=== PATIENT | female | born 1935 | race American Indian/Alaskan Native ===

== ENCOUNTER 2017-09-11 13:56 | Emergency (ER) | payer MEDICARE, OTHER ==
[~2017-09-11] VITALS: Ht 165.1 cm; Wt 72.1 kg
[2017-09-11] MEDS ORDERED: LISI-552 PO (14:28)
[2017-09-11] MEDS ORDERED: CITA20TA7 PO (14:29)
[2017-09-11] MEDS ORDERED: ASPI-586 PO (14:30)
[2017-09-11 14:58] LABS: BASOPHILS % (AUTO) 0 % (0-10); EOSINOPHILS % (AUTO) 0 % (0-10); LYMPHOCYTES # (AUTO) 0.9 X 10^3 (1.0-4.0); LYMPHOCYTES % (AUTO) 20 % (12-44); MEAN CORPUSCULAR HEMOGLOBIN 31 PG (25-34); MEAN CORPUSCULAR HGB CONC 35 G/DL (32-36); MEAN CORPUSCULAR VOLUME 88 FL (80-99); MEAN PLATELET VOLUME 9.5 FL (7.4-10.4); MONOCYTES # (AUTO) 0.7 X 10^3 (0.0-1.0); MONOCYTES % (AUTO) 15 % (0-12); NEUTROPHILS % (AUTO) 65 % (42-75); PLATELET COUNT 191 10^3/uL (130-400); RED BLOOD COUNT 4.56 10^6/uL (4.35-5.85); RED CELL DISTRIBUTION WIDTH 12.2 % (10.0-14.5); WHITE BLOOD COUNT 4.6 10^3/uL (4.3-11.0)
[2017-09-11 15:18] LABS: ALANINE AMINOTRANSFERASE 44 U/L (0-55); ALBUMIN 3.9 GM/DL (3.2-4.5); ANION GAP 11 MMOL/L (5-14); ASPARTATE AMINO TRANSFERASE 41 U/L (5-34); BILIRUBIN,TOTAL 0.4 MG/DL (0.1-1.0); BLOOD UREA NITROGEN 14 MG/DL (7-18); BUN/CREATININE RATIO 19; CALCIUM 8.6 MG/DL (8.5-10.1); CARBON DIOXIDE 22 MMOL/L (21-32); CHLORIDE 102 MMOL/L (98-107); CREATININE SERUM 0.75 MG/DL (0.60-1.30); GFR ESTIMATED > 60; GLUCOSE 92 MG/DL (70-105); POTASSIUM 3.7 MMOL/L (3.6-5.0); SODIUM 135 MMOL/L (135-145); TOTAL PROTEIN 6.6 GM/DL (6.4-8.2)
--- NOTE | 2017-09-11 16:04 | ED Cough/URI ---
General Chief Complaint: Cough/Cold/Flu Symptoms Stated Complaint: DIAHREA,WEAK Nursing Triage Note: AMB TO ROOM C/O COUGH AND WEAK. DRINKING WITHOUT PROBLEM REPORTS WAS SEEN BY PCP ON THURSDAY AND THU. WAS PUT ON ANTIBIOTIC ON THU Source: patient Exam Limitations: no limitations History of Present Illness Time seen by provider: 15:56 Initial Comments The patient is a 81-year-old white female who reports that she has had a cough fever and flulike symptoms for about one week. She is becoming discouraged by general weakness. She saw her provider Thursday and Thursday of this week. She was given an antibiotic on Thursday. Following that she states that she had some stool incontinence. The stool was soft not watery. Timing/Duration: week Severity/Quality: moderate, dry cough Associated Symptoms: cough, dizziness, fever/chills, lightheadedness, muscle aches Allergies and Home Medications Allergies Coded Allergies: No Known Drug Allergies (Unverified , 09/11/17) Home Medications Aspirin 81 Mg Tablet.dr, 81 MG PO, (Reported) Citalopram Hydrobromide 20 Mg Tablet, 20 MG PO, (Reported) Lisinopril 20 Mg Tablet, 20 MG PO DAILY, (Reported) Constitutional: see HPI EENTM: no symptoms reported Respiratory: cough Cardiovascular: no symptoms reported Gastrointestinal: diarrhea Genitourinary: no symptoms reported Musculoskeletal: muscle pain Skin: no symptoms reported Psychiatric/Neurological: No Symptoms Reported Hematologic/Lymphatic: No Symptoms Reported Immunological/Allergic: no symptoms reported Past Xvfdutg-Jspnng-Opxclx Hx Patient Social History Alcohol Use: Denies Use Recreational Drug Use: No Smoking Status: Never a Smoker Recent Foreign Travel: No Contact w/Someone Who Travel: No Recent Infectious Disease Expo: No Surgeries History of Surgeries: Yes Surgeries: Hysterectomy, Orthopedic Respiratory History of Respiratory Disorde: No Cardiovascular History of Cardiac Disorders: Yes Cardiac Disorders: Hypertension Neurological History of Neurological Disord: No Genitourinary History of Genitourinary Disor: No Gastrointestinal History of Gastrointestinal Di: No Musculoskeletal History of Musculoskeletal Dis: No Endocrine History of Endocrine Disorders: No HEENT History of HEENT Disorders: No Cancer History of Cancer: No Psychosocial History of Psychiatric Problem: No Integumentary History of Skin or Integumenta: No Physical Exam Vital Signs Vital Sign - Last 12Hours 09/11/17 14:15 Temp 97.6 Pulse 56 B/P (MAP) 128/71 (90) Pulse Ox 98 O2 Delivery Room Air Capillary Refill : Less Than 3 Seconds General Appearance: mild distress Eyes: Bilateral Eye Normal Inspection HEENT: other (try tongue with white exudate) Neck: full range of motion Respiratory: chest non-tender, lungs clear, normal breath sounds, no respiratory distress, no accessory muscle use, respiratory distress Cardiovascular: normal peripheral pulses, regular rate, rhythm, no edema, no gallop, no JVD, no murmur Gastrointestinal: normal bowel sounds, non tender, soft, no organomegaly, no pulsatile mass Extremities: normal range of motion, non-tender, normal inspection, no pedal edema, no calf tenderness, normal capillary refill, pelvis stable 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, no motor/sensory deficits, alert, normal mood/affect, oriented x 3 Skin: normal color, warm/dry, cyanosis, cool, diaphoresis, damp Lymphatic: no adenopathy Progress/Results/Core Measures Suspected Sepsis Recent Fever Within 48 Hours: No Infection Criteria Present: None New/Unexplained Altered Menta: No Sepsis Screen: No Definite Risk Sepsis Diagnosis: SIRS Temperature:97.6 Pulse: 56 Respiratory Rate: Laboratory Tests 09/11/17 14:55: White Blood Count 4.6 Blood Pressure 128 /71 Mean: 90 Laboratory Tests 09/11/17 14:55: Creatinine 0.75, Platelet Count 191, Total Bilirubin 0.4 Results/Orders Lab Results Laboratory Tests Test 09/11/17 14:55 Range/Units White Blood Count 4.6 4.3-11.0 10^3/uL Red Blood Count 4.56 4.35-5.85 10^6/uL Hemoglobin 14.1 11.5-16.0 G/DL Hematocrit 40 35-52 % Mean Corpuscular Volume 88 80-99 FL Mean Corpuscular Hemoglobin 31 25-34 PG Mean Corpuscular Hemoglobin Concent 35 32-36 G/DL Red Cell Distribution Width 12.2 10.0-14.5 % Platelet Count 191 130-400 10^3/uL Mean Platelet Volume 9.5 7.4-10.4 FL Neutrophils (%) (Auto) 65 42-75 % Lymphocytes (%) (Auto) 20 12-44 % Monocytes (%) (Auto) 15 H 0-12 % Eosinophils (%) (Auto) 0 0-10 % Basophils (%) (Auto) 0 0-10 % Neutrophils # (Auto) 3.0 1.8-7.8 X 10^3 Lymphocytes # (Auto) 0.9 L 1.0-4.0 X 10^3 Monocytes # (Auto) 0.7 0.0-1.0 X 10^3 Eosinophils # (Auto) 0.0 0.0-0.3 10^3/uL Basophils # (Auto) 0.0 0.0-0.1 10^3/uL Sodium Level 135 135-145 MMOL/L Potassium Level 3.7 3.6-5.0 MMOL/L Chloride Level 102 98-107 MMOL/L Carbon Dioxide Level 22 21-32 MMOL/L Anion Gap 11 5-14 MMOL/L Blood Urea Nitrogen 14 7-18 MG/DL Creatinine 0.75 0.60-1.30 MG/DL Estimat Glomerular Filtration Rate > 60 BUN/Creatinine Ratio 19 Glucose Level 92 70-105 MG/DL Calcium Level 8.6 8.5-10.1 MG/DL Total Bilirubin 0.4 0.1-1.0 MG/DL Aspartate Amino Transf (AST/SGOT) 41 H 5-34 U/L Alanine Aminotransferase (ALT/SGPT) 44 0-55 U/L Alkaline Phosphatase 64 40-136 U/L Total Protein 6.6 6.4-8.2 GM/DL Albumin 3.9 3.2-4.5 GM/DL Micro Results Microbiology 09/11/17 Influenza Types A,B Antigen (JENNI) - Final, Complete My Orders Orders - RODERICK WALLACE MD Cbc With Automated Diff (09/11/17 14:14) Comprehensive Metabolic Panel (09/11/17 14:14) Ua Culture If Indicated (09/11/17 14:14) Stool Culture (09/11/17 14:14) Influenza A And B Antigens (09/11/17 14:57) Vital Signs/I&O Vital Sign - Last 12Hours 09/11/17 14:15 Temp 97.6 Pulse 56 B/P (MAP) 128/71 (90) Pulse Ox 98 O2 Delivery Room Air Capillary Refill : Less Than 3 Seconds Blood Pressure Mean: 90 Departure Impression Impression: Primary Impression: influenza B Disposition: 01 HOME, SELF-CARE Condition: Stable/Unchanged Departure-Patient Inst. Decision time for Depature: 16:05 Referrals: PAUL PARKER MD (PCP/Family) Primary Care Physician Patient Instructions: Flu, Adult (DC) Add. Discharge Instructions: All discharge instructions reviewed with patient and/or family. Voiced understanding. You have influenza B. Typically this lasts about 2 weeks. Antibiotics are of no value. You should get extra rest. Plenty of liquids. Use Tylenol or NSAIDs to control fever and body ache. If continued problems in one additional week see your provider. RODERICK WALLACE MD Sep 11, 2017 16:04
[2017-09-11 16:16] VITALS: BP 133/70
== END 2017-09-11 16:14 | disposition home or self-care (01) ==
LOC: EDUNIT# 13:56 → ER 14:07
DX: J10.1 Influenza due to other identified influenza virus with other respiratory manifestations (principal); I10 Essential (primary) hypertension; Z79.82 Long term (current) use of aspirin; Z90.710 Acquired absence of both cervix and uterus
CPT/HCPCS: 36415; 80053; 85025; 87804; 99282

== ENCOUNTER → 2018-01-21 | Outpatient (CLI) | payer MEDICARE, OTHER ==
[~2018-01-21] MED LIST: ASPI-586 PO; CITA20TA9 PO; LISI-552 PO
--- NOTE | 2018-01-21 19:29 | Diagnostic Imaging Report ---
INDICATION: Age-related osteoporosis. Bone marrow analysis of the lumbar spine and the left hip was performed. FINDINGS: The bone mineral density of the lumbar spine L2-L4 is 1.103 with T score of -0.8. Bone mineral density of left femoral neck is 0.858 with a T score of -1.3. IMPRESSION: Normal bone mineral density of the lumbar spine with osteopenia of the left femoral neck. Dictated by: Dictated on workstation # [id number]
== END ==
LOC: RAD 09:17
PROVIDERS: ATTEND Nurse Practitioner Family
DX: M85.852 Other specified disorders of bone density and structure, left thigh (principal)
CPT/HCPCS: 77080

== ENCOUNTER → 2019-10-03 | Outpatient (CLI) | payer MEDICARE, OTHER ==
--- NOTE | 2019-10-03 17:35 | Diagnostic Imaging Report ---
INDICATION: Cough. PA and lateral views of the chest are obtained. There is no previous study for comparison. FINDINGS: Overall heart size and pulmonary vascularity are within normal limits. There is no pneumothorax or consolidation. Tbnk-oq-icmhtryj hiatal hernia is present. There is no significant pleural fluid. IMPRESSION: Hiatal hernia without evidence of acute abnormality seen in the chest. Dictated by: Dictated on workstation # [id number]
== END ==
LOC: RAD 15:43
PROVIDERS: ATTEND Nurse Practitioner Family
DX: K44.9 Diaphragmatic hernia without obstruction or gangrene (principal); R05 Cough
CPT/HCPCS: 71046

== ENCOUNTER → 2021-01-02 | Outpatient (CLI) | payer MEDICARE, OTHER ==
[~2021-01-02] MED LIST changes: -LISI-552 PO; +LISI20TA26 PO
--- NOTE | 2021-01-02 13:54 | Diagnostic Imaging Report ---
Indication: Routine screening. No prior mammograms are available for comparison. 2-D and 3-D bilateral screening mammography was performed with CAD. Scattered fibroglandular densities are identified bilaterally. Benign calcification on the left is noted. There is a density in the right breast at mid depth best seen on the CC view at the nipple line. Additional views are recommended. No other suspicious densities are seen. No malignant appearing microcalcifications are identified. Axillae are unremarkable. IMPRESSION: BI-RADS Category 0 Right breast density. Additional views are recommended for further evaluation. ACR BI-RADS Category 0: Incomplete. (Needs additional imaging evaluation). Result letter will be mailed to the patient. Note: At least 10% of breast cancer is not imaged by mammography. Dictated by: Dictated on workstation # [id number]
== END ==
LOC: RAD 10:41
DX: Z12.31 Encounter for screening mammogram for malignant neoplasm of breast (principal)
CPT/HCPCS: 77063; 77067

== ENCOUNTER → 2021-01-18 | Outpatient (CLI) | payer MEDICARE, OTHER ==
--- NOTE | 2021-01-18 14:23 | Diagnostic Imaging Report ---
INDICATION: Right breast density. PROCEDURE: The patient presents for additional views. COMPARISON is made with screening study from 01/02/2021. Unilateral right 2-D and 3-D diagnostic mammography was performed with CAD. There is a persistent slightly rounded circumscribed density in the outer right breast mid depth approximately 5 cm from the nipple. This is only seen with clarity on the CC views. Additional views are recommended. No other concerning masses are seen. IMPRESSION: BI-RADS 0 Persistent rounded density in the slightly outer right breast. Further evaluation with ultrasound is recommended and will be performed today. ACR BI-RADS Category 0: Incomplete. (Needs additional imaging evaluation). Result letter will be mailed to the patient. Note: At least 10% of breast cancer is not imaged by mammography. Dictated by: Dictated on workstation # [id number]
--- NOTE | 2021-01-18 16:05 | Diagnostic Imaging Report ---
INDICATION: Right breast density. CORRELATION is made with diagnostic mammogram earlier the same day and screening mammogram from 01/02/2021. Sonographic interrogation upper outer right breast demonstrates a simple cyst at the 11:00 location 5 cm from the nipple approximately 4 mm in diameter. This corresponds to the mammographic density. Several additional cysts are present. No solid masses are identified. IMPRESSION: BI-RADS Category 2 Simple cyst upper outer right breast, likely accounting for the mammographic density. Patient may return to routine annual screening mammography. ACR BI-RADS Category 2: Benign findings. Result letter will be mailed to the patient. Note: At least 10% of breast cancer is not imaged by mammography. Dictated by: Dictated on workstation # [id number]
== END ==
LOC: RAD 14:15
DX: N60.01 Solitary cyst of right breast (principal)
CPT/HCPCS: 76642; 77065; G0279

== ENCOUNTER 2022-02-21 19:14 | Emergency (ER) | payer MEDICARE, OTHER ==
[~2022-02-21] VITALS: Ht 162 cm; Wt 79.4 kg
[2022-02-21] MEDS ORDERED: LACTATED RINGERS 1,000 ML IV ONE (20:15)
[2022-02-21 20:35] VITALS: BP 166/93
--- NOTE | 2022-02-21 21:16 | Diagnostic Imaging Report ---
INDICATION: Cough and fever. EXAMINATION: Portable chest at 9:14 PM. There is a moderate-sized hiatal hernia. Heart size and pulmonary vascularity are normal. Lungs are clear. There are no effusions or pneumothoraces. IMPRESSION: Hiatal hernia. Dictated by: Dictated on workstation # [id number]
--- NOTE | 2022-02-21 21:19 | ED Cough/URI ---
General Stated Complaint: COUGH/FEVER/POSITIVE COVID TEST Source: patient History of Present Illness Date Seen by Provider: Feb 21, 2022 Time Seen by Provider: 20:40 Initial Comments PT ARRIVES VIA POV FROM HOME WITH DAUGHTER PT STATES SHE BEGAN FEELING SICK YESTERDAY WITH NON-PRODUCTIVE COUGH PT STATES SHE HAD A POSITIVE HOME COVID-19 TEST TONIGHT, SO CAME HER "JUST TO CHECK" PT DENIES FEVER / SWEATS OR CHILLS. DENIES LOSS OF TASTE/SMELL OR SORE THROAT DENIES ANY INCREASE IN CHRONIC SHORTNESS OF BREATH--DENIES ANY HISTORY OF RESPIRATORY PROBLEMS OR CARDIAC PROBLEMS--STATES SHE IS ALWAYS A LITTLE SHORT OF BREATH, ESPECIALLY WITH ANY EXERTION NO SWELLING IN LEGS/ FEET OR PAIN IN CALVES NO GI SYMPTOMS NO HEADACHE NO BODY ACHES PT HAS HAD COVID-19 VACCINE X 2--LAST JANUARY OF 2021. NO [id number] NO FLU VACCINE NO OTHER FAMILY / HOUSEHOLD MEMBERS ARE ILL. LIVES WITH HER DAUGHTER AND [place], AND SOMETIMES HER SON STAYS WITH HER ALSO. STATES HER ONLY MEDICAL PROBLEM IS HTN PCP:DR. PARKER Allergies and Home Medications Allergies Coded Allergies: No Known Drug Allergies (Unverified , 09/11/17) Patient Home Medication List Aspirin (Aspir 81) 81 Mg Tablet.dr, 81 MG PO, (Reported) Entered as Reported by: ANNELISE DIAZ on 09/11/17 1430 Citalopram Hydrobromide (Citalopram HBr) 20 Mg Tablet, 20 MG PO, (Reported) Entered as Reported by: ANNELISE DIAZ on 09/11/17 1429 Lisinopril (Lisinopril) 20 Mg Tablet, 20 MG PO DAILY, (Reported) Entered as Reported by: ANNELISE DIAZ on 09/11/17 1428 Review of Systems Review of Systems Constitutional: no symptoms reported EENTM: no symptoms reported Respiratory: see HPI, cough, dyspnea on exertion; No orthopnea; short of breath; No wheezing Cardiovascular: no symptoms reported Gastrointestinal: no symptoms reported Genitourinary: no symptoms reported Musculoskeletal: no symptoms reported Skin: no symptoms reported Psychiatric/Neurological: No Symptoms Reported Hematologic/Lymphatic: No Symptoms Reported Immunological/Allergic: no symptoms reported Past Gyoskvw-Saimem-Ywbnwe Hx Patient Social History Tobacco Use?: No Smoking Status: Never a Smoker Substance use?: No Alcohol Use?: No Past Medical History Surgeries: Yes Hysterectomy, Orthopedic Respiratory: No Cardiac: Yes Hypertension Neurological: No 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 oz. 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, no motor/sensory deficits, alert, normal mood/affect, oriented x 3 Skin: normal color, warm/dry; No rash Focused Exam Sepsis Stage: Ruled Out Reason for ruling out sepsis: DOES NOT MEET CRITERIA Possible Source: Pulmonary Lactate Level 02/21/22 20:50: Lactic Acid Level 1.73 Time of Focused Exam: 22:00 Respiratory: Normal Breath Sounds, No Accessory Muscle Use, No Respiratory Distress Cardiovascular: Regular Rate, Rhythm, No Edema, No JVD, No Murmur, Normal Peripheral Pulses Capillary Refill: Less Than 3 Seconds Skin: normal color, warm/dry Lactic Acid Level Laboratory Tests Test 02/21/22 20:50 Lactic Acid Level 1.73 MMOL/L (0.50-2.00) Within 3hrs of presentation: Admin fluids, Blood cultures prior to ABX's, Focus exam, Lactate level, Other (NO ANTBIOTICS GIVEN PT HAS COVID, WITHOUT PNEUMONIA) Progress/Results/Core Measures Suspected Sepsis SIRS Temperature: Pulse: Respiratory Rate: Laboratory Tests 02/21/22 20:50: White Blood Count 4.7 Blood Pressure / Mean: 02/21/22 20:50: Lactic Acid Level 1.73 Laboratory Tests 02/21/22 20:50: Creatinine 1.07, INR Comment 0.9, Platelet Count 189, Total Bilirubin 0.4 Results/Orders Lab Results Laboratory Tests Test 02/21/22 20:50 02/21/22 20:55 Range/Units White Blood Count 4.7 4.3-11.0 10^3/uL Red Blood Count 4.49 3.80-5.11 10^6/uL Hemoglobin 14.1 11.5-16.0 g/dL Hematocrit 42 35-52 % Mean Corpuscular Volume 93 80-99 fL Mean Corpuscular Hemoglobin 31 25-34 pg Mean Corpuscular Hemoglobin Concent 34 32-36 g/dL Red Cell Distribution Width 12.0 10.0-14.5 % Platelet Count 189 130-400 10^3/uL Mean Platelet Volume 10.8 9.0-12.2 fL Immature Granulocyte % (Auto) 0 % Neutrophils (%) (Auto) 41 L 42-75 % Lymphocytes (%) (Auto) 39 12-44 % Monocytes (%) (Auto) 16 H 0-12 % Eosinophils (%) (Auto) 3 0-10 % Basophils (%) (Auto) 0 0-10 % Neutrophils # (Auto) 1.9 1.8-7.8 10^3/uL Lymphocytes # (Auto) 1.8 1.0-4.0 10^3/uL Monocytes # (Auto) 0.8 0.0-1.0 10^3/uL Eosinophils # (Auto) 0.1 0.0-0.3 10^3/uL Basophils # (Auto) 0.0 0.0-0.1 10^3/uL Immature Granulocyte # (Auto) 0.0 0.0-0.1 10^3/uL Percent Immature Platelet Fraction 7.1 0.0-7.6 % Erythrocyte Sedimentation Rate 4 0-30 MM/HR Prothrombin Time 12.9 12.2-14.7 SEC INR Comment 0.9 0.8-1.4 Activated Partial Thromboplast Time 28 24-35 SEC D-Dimer 0.42 0.00-0.49 UG/ML Sodium Level 138 135-145 MMOL/L Potassium Level 4.2 3.6-5.0 MMOL/L Chloride Level 101 98-107 MMOL/L Carbon Dioxide Level 22 21-32 MMOL/L Anion Gap 15 H 5-14 MMOL/L Blood Urea Nitrogen 13 7-18 MG/DL Creatinine 1.07 0.60-1.30 MG/DL Estimat Glomerular Filtration Rate 51 BUN/Creatinine Ratio 12 Glucose Level 106 H 70-105 MG/DL Lactic Acid Level 1.73 0.50-2.00 MMOL/L Calcium Level 8.9 8.5-10.1 MG/DL Corrected Calcium 8.7 8.5-10.1 MG/DL Total Bilirubin 0.4 0.1-1.0 MG/DL Aspartate Amino Transf (AST/SGOT) 30 5-34 U/L Alanine Aminotransferase (ALT/SGPT) 24 0-55 U/L Alkaline Phosphatase 59 40-136 U/L Lactate Dehydrogenase 273 H 125-220 U/L C-Reactive Protein High Sensitivity 0.28 0.00-0.50 MG/DL Total Protein 7.3 6.4-8.2 GM/DL Albumin 4.3 3.2-4.5 GM/DL Procalcitonin 0.03 <0.10 NG/ML Influenza Type A (RT-PCR) Not Detected Not Detecte Influenza Type B (RT-PCR) Not Detected Not Detecte SARS-CoV-2 RNA (RT-PCR) Detected H Not Detecte My Orders Orders - BRANDY CARLOS DO Cbc With Automated Diff (02/21/22 20:06) Comprehensive Metabolic Panel (02/21/22 20:06) Fibrin Degradation Products (02/21/22 20:06) Procalcitonin (Pct) (02/21/22 20:06) Hs C Reactive Protein (02/21/22 20:06) Erythrocyte Sedimentation Rate (02/21/22 20:06) LDH (02/21/22 20:06) Blood Culture (02/21/22 20:06) Ekg Tracing (02/21/22 20:06) Chest 1 View, Ap/Pa Only (02/21/22 20:06) Covid 19 Inhouse Test (02/21/22 20:06) Urine Culture (02/21/22 20:06) Protime With Inr (02/21/22 20:06) Partial Thromboplastin Time (02/21/22 20:06) Ed Iv/Invasive Line Start (02/21/22 20:06) Ed Iv/Invasive Line Start (02/21/22 20:06) Vital Signs Adult Sepsis Patie Q15M (02/21/22 20:06) O2 (02/21/22 20:06) Remove Rings In Anticipation O (02/21/22 20:06) Lactic Acid Analyzer (02/21/22 20:06) Influenza A And B By Pcr (02/21/22 20:06) Isolation Central Supply Req (02/21/22 20:06) Ed Iv/Invasive Line Start (02/21/22 20:06) Lactated Ringers (Lr 1000 Ml Iv Solution (02/21/22 20:15) Covid Bebtelovimab Admin (02/21/22 ) Medications Given in ED Current Medications Medications Dose Ordered Sig/Mary Route Start Time Stop Time Status Last Admin Dose Admin Lactated Ringer's 1,000 ml @ 0 mls/hr Q0M ONCE IV 02/21/22 20:15 02/21/22 20:16 DC 02/21/22 21:50 0 MLS/HR Vital Signs/I&O 02/21/22 20:35 Temp 36.7 Pulse 69 Resp 22 B/P (MAP) 166/93 (117) Pulse Ox 96 O2 Delivery Room Air Capillary Refill : Progress Note : Progress Note PLACED IN ISOLATION ROOM PPE WORN AT ALL TIMES COVID AND FLU TESTS DONE SEPSIS PROTOCOL INITIATED. NO COUGH NO DYSPNEA NO HYPOXIA NO FEVER. PT STATES ON ARRIVAL THAT SHE WILL NOT STAY IN THE HOSPITAL. DISCUSSED ANTIBODY INFUSION AND PT WISHES TO PROCEED. NO DETERIORATION IN PT'S CONDITION, AND NO ADVERSE REACTION WITH THE INFUSION ECG Initial ECG Impression Date: Feb 21, 2022 Initial ECG Impression Time: 20:55 Initial ECG Rate: 74 Initial ECG Rhythm: Normal Sinus (OC PVC'S) Diagnostic Imaging Comments CXR--PER RADIOLOGIST REPORT AT 2122 There is a moderate-sized hiatal hernia. Heart size and pulmonary vascularity are normal. Lungs are clear. There are no effusions or pneumothoraces. IMPRESSION: Hiatal hernia. Reviewed: Reviewed by Me Departure Impression Primary Impression: COVID-19 virus infection Disposition: HOME, SELF-CARE Condition: Stable Departure-Patient Inst. Decision time for Depature: 22:10 Referrals: PAUL PARKER MD (PCP/Family) Primary Care Physician Patient Instructions: COVID-19 (DC), COVID-19 Home Care/Discharge, Bebtelovimab FDA Fact Sheet, Preventing the Spread of an Infectious Disease Add. Discharge Instructions: LOTS OF CLEAR LIQUIDS--WATER, BROTH, JELLO, GATORADE TYLENOL 1 GRAM AND MOTRIN 800 MG 4 TIMES A DAY FOR PAIN OR FEVER USE YOUR HOME PRESCRIPTION COUGH MEDICATION NEEDED FOR COUGH FOLLOW UP WITH YOUR DR NEEDED RETURN TO ER IF YOUR HAVE WORSENING OF SYMPTOMS SUCH DIFFICULTY BREATHING, OR IF YOU ARE HAVING SYMPTOMS OF DEHYDRATION QUARANTINE YOURSELF AND ALL HOUSEHOLD CONTACTS FOR THE NEXT 10 DAYS BRANDY CARLOS DO Feb 21, 2022 21:19
[2022-02-21 21:26] LABS: BASOPHILS % (AUTO) 0 % (0-10); EOSINOPHILS # (AUTO) 0.1 10^3/uL (0.0-0.3); EOSINOPHILS % (AUTO) 3 % (0-10); MEAN CORPUSCULAR VOLUME 93 fL (80-99); NEUTROPHILS # (AUTO) 1.9 10^3/uL (1.8-7.8)
[2022-02-21 21:28] LABS: HEMATOCRIT 42 % (35-52); HEMOGLOBIN 14.1 g/dL (11.5-16.0); LYMPHOCYTES # (AUTO) 1.8 10^3/uL (1.0-4.0); LYMPHOCYTES % (AUTO) 39 % (12-44); MEAN CORPUSCULAR HEMOGLOBIN 31 pg (25-34); MEAN CORPUSCULAR HGB CONC 34 g/dL (32-36); MEAN PLATELET VOLUME 10.8 fL (9.0-12.2); MONOCYTES # (AUTO) 0.8 10^3/uL (0.0-1.0); MONOCYTES % (AUTO) 16 % (0-12); NEUTROPHILS % (AUTO) 41 % (42-75); PLATELET COUNT 189 10^3/uL (130-400); WHITE BLOOD COUNT 4.7 10^3/uL (4.3-11.0)
[2022-02-21 21:37] LABS: ALBUMIN 4.3 GM/DL (3.2-4.5); POTASSIUM 4.2 MMOL/L (3.6-5.0)
[2022-02-21 21:38] LABS: CALCIUM 8.9 MG/DL (8.5-10.1)
[2022-02-21 21:39] LABS: TOTAL PROTEIN 7.3 GM/DL (6.4-8.2)
[2022-02-21 21:41] LABS: BILIRUBIN,TOTAL 0.4 MG/DL (0.1-1.0)
[2022-02-21 21:43] LABS: CREATININE SERUM 1.07 MG/DL (0.60-1.30); FIBRIN DEGRADATION PRODUCTS 0.42 UG/ML (0.00-0.49); INR 0.9 (0.8-1.4); PROTHROMBIN TIME PATIENT 12.9 SEC (12.2-14.7)
[2022-02-21 21:51] LABS: ERYTHROCYTE SEDIMENTATION RATE 4 MM/HR (0-30)
[2022-02-24] MEDS ORDERED: BEBTELOVIMAB 175 MG/2 ML VIAL IV ONE (08:45)
== END 2022-02-21 23:45 | disposition home or self-care (01) ==
LOC: EDUNIT# 19:14 → ER 19:16
DX: U07.1 COVID-19 (principal); Z28.311 Partially vaccinated for COVID-19
CPT/HCPCS: 36415; 71045; 80053; 83605; 83615; 84145; 85025; 85379; 85610; 85652; 85730; 86141; 87040; 87636; 93005

== ENCOUNTER → 2022-07-01 | Outpatient (CLI) | payer MEDICARE ==
--- NOTE | 2022-07-01 20:59 | Diagnostic Imaging Report ---
INDICATION: Cough, right basilar crackles COMPARISON: 02/21/2022 TECHNIQUE: Frontal and lateral radiographs of the chest dated 07/01/2022. FINDINGS: The cardiac silhouette is within normal limits in size. No significant pulmonary vascular congestion. Moderate sized hiatal hernia. The lungs are clear of focal pulmonary opacity. No pleural effusion. No pneumothorax. Scattered osseous degenerative changes without acute osseous abnormality. Mild S-shaped curvature of the visualized spine. Significant background vascular calcifications. IMPRESSION: No acute cardiopulmonary abnormality. Moderate-sized hiatal hernia. Significant background vascular calcifications. Dictated by: Dictated on workstation # [id number]
== END ==
LOC: RAD 14:17
PROVIDERS: ATTEND Family Medicine
DX: K44.9 Diaphragmatic hernia without obstruction or gangrene (principal); J98.4 Other disorders of lung
CPT/HCPCS: 71046

== ENCOUNTER 2023-07-24 08:16 | Emergency (ER) | payer MEDICARE ==
[~2023-07-24] VITALS: Ht 154.9 cm; Wt 68.0 kg
[2023-07-24] MEDS ORDERED: ACETAMINOPHEN 500 MG TABLET PO PRN (08:30)
[2023-07-24] MEDS ORDERED: NS IV 500 ML 500 ML IV ONE ×2 (08:30→09:15)
--- NOTE | 2023-07-24 08:32 | ED General ---
General Stated Complaint: WEAKNESS | INCOHERENT Source of Information: Patient Exam Limitations: No Limitations History of Present Illness Date Seen by Provider: Jul 24, 2023 Time Seen by Provider: 08:19 Initial Comments Here with report of weakness and confusion overnight. Patient apparently has been seen by Dr. WARD's office recently and started on prednisone and an inhaler for bronchitis. She has not currently on a antibiotic. Patient reports that she has had mild cough as well as runny nose and sore throat over the last couple of days. States that she woke up in the middle the night and was very thirsty so drink 2 bottles of water and then apparently was somewhat confused and weak. She was brought in by her granddaughter due to this. No report of diarrhea or dysuria. Denies chest pain. She is able to ambulate now and is an swering questions. She has not taken anything for fever but does arrive with a fever. Timing/Duration: 2-3 Days, Getting Worse Severity: Moderate Associated Systoms: No Chest Pain; Cough, Fever/Chills; No Nausea/Vomiting, No Shortness of Air; Weakness Allergies and Home Medications Allergies Coded Allergies: No Known Drug Allergies (Unverified , 09/11/17) Patient Home Medication List Home Medication List Reviewed: Yes Aspirin (Aspir 81) 81 Mg Tablet.dr, 81 MG PO, (Reported) Entered as Reported by: ANNELISE DIAZ on 09/11/17 1430 Citalopram Hydrobromide (Citalopram HBr) 20 Mg Tablet, 20 MG PO, (Reported) Entered as Reported by: ANNELISE DIAZ on 09/11/17 1429 Lisinopril (Lisinopril) 20 Mg Tablet, 20 MG PO DAILY, (Reported) Entered as Reported by: ANNELISE DIAZ on 09/11/17 1428 Review of Systems Review of Systems Constitutional: see HPI, chills, fever, weakness EENTM: nose congestion, throat pain Respiratory: cough; No short of breath Cardiovascular: No chest pain, No edema Gastrointestinal: No diarrhea, No nausea, No vomiting Genitourinary: No dysuria Musculoskeletal: No back pain, No muscle pain; muscle weakness Skin: no symptoms reported Psychiatric/Neurological: See HPI Past Jnxerkn-Fkriho-Qysyxj Hx Patient Social History Tobacco Use?: No Use of E-Cig and/or Vaping dev: No Substance use?: No Alcohol Use?: No Immunizations Up To Date First/Initial COVID19 Vaccinat: 12/2020 Second COVID19 Vaccination Jamil: 01/2021 Past Medical History Surgeries: Yes Hysterectomy, Orthopedic Respiratory: No Cardiac: Yes Hypertension Neurological: No 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 oz. 72.507254at; 30.00 BMI Method:Stated General Appearance: No Apparent Distress, WD/WN HEENT: PERRL/EOMI, Pharyngeal Erythema Neck: Non Tender, Supple Respiratory: Lungs Clear, Normal Breath Sounds Cardiovascular: Regular Rate, Rhythm, No Murmur Gastrointestinal: Non Tender, Soft Back: Normal Inspection, No CVA Tenderness, No Vertebral Tenderness Extremity: Normal Range of Motion, Non Tender, No Calf Tenderness, No Pedal Edema Neurologic/Psychiatric: Alert, Oriented x3 Skin: normal color, warm/dry Focused Exam Lactate Level 07/24/23 08:25: Lactic Acid Level 2.24*H 07/24/23 10:17: Lactic Acid Level 1.11 Lactic Acid Level Laboratory Tests Test 07/24/23 08:25 07/24/23 10:17 Lactic Acid Level 2.24 MMOL/L (0.50-2.00) *H 1.11 MMOL/L (0.50-2.00) Progress/Results/Core Measures Suspected Sepsis SIRS Temperature: Pulse: Respiratory Rate: Laboratory Tests 07/24/23 08:25: White Blood Count 12.1H Blood Pressure / Mean: 07/24/23 08:25: Lactic Acid Level 2.24*H 07/24/23 10:17: Lactic Acid Level 1.11 Laboratory Tests 07/24/23 08:25: Creatinine 0.97, INR Comment 1.1, Platelet Count 230, Total Bilirubin 0.7 Results/Orders Lab Results Laboratory Tests Test 07/24/23 08:23 07/24/23 08:25 07/24/23 08:40 07/24/23 10:17 Range/Units Influenza Type A (RT-PCR) Not Detected Not Detecte Influenza Type B (RT-PCR) Not Detected Not Detecte SARS-CoV-2 RNA (RT-PCR) Not Detected Not Detecte White Blood Count 12.1 H 4.3-11.0 10^3/uL Red Blood Count 3.67 L 3.80-5.11 10^6/uL Hemoglobin 11.5 11.5-16.0 g/dL Hematocrit 34 L 35-52 % Mean Corpuscular Volume 93 80-99 fL Mean Corpuscular Hemoglobin 31 25-34 pg Mean Corpuscular Hemoglobin Concent 34 32-36 g/dL Red Cell Distribution Width 11.9 10.0-14.5 % Platelet Count 230 130-400 10^3/uL Mean Platelet Volume 9.4 9.0-12.2 fL Immature Granulocyte % (Auto) 1 % Neutrophils (%) (Auto) 82 H 42-75 % Lymphocytes (%) (Auto) 8 L 12-44 % Monocytes (%) (Auto) 9 0-12 % Eosinophils (%) (Auto) 0 0-10 % Basophils (%) (Auto) 0 0-10 % Neutrophils # (Auto) 9.9 H 1.8-7.8 10^3/uL Lymphocytes # (Auto) 1.0 1.0-4.0 10^3/uL Monocytes # (Auto) 1.0 0.0-1.0 10^3/uL Eosinophils # (Auto) 0.0 0.0-0.3 10^3/uL Basophils # (Auto) 0.0 0.0-0.1 10^3/uL Immature Granulocyte # (Auto) 0.1 0.0-0.1 10^3/uL Prothrombin Time 14.9 H 12.2-14.7 SEC INR Comment 1.1 0.8-1.4 Activated Partial Thromboplast Time 27 24-35 SEC Sodium Level 134 L 135-145 MMOL/L Potassium Level 3.3 L 3.6-5.0 MMOL/L Chloride Level 102 98-107 MMOL/L Carbon Dioxide Level 18 L 21-32 MMOL/L Anion Gap 14 5-14 MMOL/L Blood Urea Nitrogen 15 7-18 MG/DL Creatinine 0.97 0.60-1.30 MG/DL Estimat Glomerular Filtration Rate 57 BUN/Creatinine Ratio 15 Glucose Level 107 H 70-105 MG/DL Lactic Acid Level 2.24 *H 1.11 0.50-2.00 MMOL/L Calcium Level 8.7 8.5-10.1 MG/DL Corrected Calcium 8.9 8.5-10.1 MG/DL Total Bilirubin 0.7 0.1-1.0 MG/DL Aspartate Amino Transf (AST/SGOT) 17 5-34 U/L Alanine Aminotransferase (ALT/SGPT) 15 0-55 U/L Alkaline Phosphatase 54 40-136 U/L C-Reactive Protein High Sensitivity 1.63 H 0.00-0.50 MG/DL Total Protein 6.4 6.4-8.2 GM/DL Albumin 3.8 3.2-4.5 GM/DL Urine Color YELLOW Urine Clarity CLEAR Urine pH 5.5 5-9 Urine Specific [place] 1.020 1.016-1.022 Urine Protein NEGATIVE NEGATIVE Urine Glucose (UA) NEGATIVE NEGATIVE Urine Ketones NEGATIVE NEGATIVE Urine Nitrite NEGATIVE NEGATIVE Urine Bilirubin NEGATIVE NEGATIVE Urine Urobilinogen 1.0 < = 1.0 MG/DL Urine Leukocyte Esterase TRACE H NEGATIVE Urine RBC (Auto) NEGATIVE NEGATIVE Urine RBC NONE /HPF Urine WBC 25-50 H /HPF Urine Squamous Epithelial Cells >50 H /HPF Urine Crystals PRESENT H /LPF Urine Amorphous Sediment FEW DIXON URATES H /LPF Urine Bacteria MODERATE H /HPF Urine Casts NONE /LPF Urine Mucus SMALL H /LPF Urine Culture Indicated NO My Orders Orders - BJORN LOW MD Cbc And Automated Diff (07/24/23 08:24) Comprehensive Metabolic Panel (07/24/23 08:24) Blood Culture (07/24/23 08:24) Sputum Culture (07/24/23 08:24) Urinalysis (07/24/23 08:24) Urine Culture (07/24/23 08:24) Protime With Inr (07/24/23 08:24) Partial Thromboplastin Time (07/24/23 08:24) Chest 1 View, Ap/Pa Only (07/24/23 08:24) Acetaminophen Tablet (Acetaminophen Ta (07/24/23 08:30) Ed Iv/Invasive Line Start (07/24/23 08:24) Vital Signs Adult Sepsis Patie Q15M (07/24/23 08:24) O2 (07/24/23 08:24) Remove Rings In Anticipation O (07/24/23 08:24) Lactic Acid Analyzer (07/24/23 08:24) Influenza A And B By Pcr (07/24/23 08:24) Ns Iv 500 Ml (Ns Iv 500 Ml) (07/24/23 08:30) Hs C Reactive Protein (07/24/23 08:24) Covid 19 Inhouse Test (07/24/23 08:24) Ns Iv 500 Ml (Ns Iv 500 Ml) (07/24/23 09:15) Ceftriaxone Iv/Im (Ceftriaxone Iv/Im) (07/24/23 09:11) Medications Given in ED Current Medications Medications Dose Ordered Sig/Mary Route Start Time Stop Time Status Last Admin Dose Admin Acetaminophen 1,000 mg ONCE PRN PO 07/24/23 08:30 07/24/23 08:31 DC 07/24/23 08:31 1,000 MG Sodium Chloride 500 ml @ 0 mls/hr Q0M ONCE IV 07/24/23 08:30 07/24/23 08:31 DC 07/24/23 08:31 999 MLS/HR Sodium Chloride 500 ml @ 0 mls/hr Q0M ONCE IV 07/24/23 09:15 07/24/23 09:16 DC 07/24/23 09:19 999 MLS/HR Vital Signs/I&O 07/24/23 07/24/23 07/24/23 08:18 08:18 08:31 Temp 38.8 38.8 Pulse 74 Resp 17 B/P (MAP) 125/57 (79) Pulse Ox 95 O2 Delivery Room Air Room Air Capillary Refill : Progress Note : Progress Note Seen and evaluated. Patient does have temperature of 38.3. We will initiate sepsis protocol including IV, labs including CBC, CMP, CRP, COVID and influenza testing, blood cultures, lactic acid and UA. We will check coags. We will also get chest x-ray. Normal saline 500 mL bolus and acetaminophen 1 g p.o. ordered. Monitor patient. Differential diagnosis includes COVID, influenza, pneumonia, UTI, other viral syndrome, electrolyte abnormality, dehydration 0850: CBC reviewed and shows slightly elevated white count with normal hemoglobin and left shift. Coags show slightly elevated PTT with normal INR. Chest x-ray reviewed by me shows some central prominence but no obvious infiltrate on my interpretation. Monitor patient. 0920: CMP does show slightly low sodium and potassium with normal creatinine and LFTs. CRP is slightly elevated. Lactic acid is elevated at greater than 2. UA did show 25-50 whites with moderate bacteria although this may be contamination because she did have her amount of squames. Given her symptoms and the fact that she is not on antibiotic we will go ahead and initiate Rocephin 1 g IV now especially with the lactic acid being elevated. We will repeat normal saline 500 mL bolus and repeat lactic acid. If this is improved and she is feeling better than potentially patient can go home. 1047: Repeat lactic acid is negative and patient feels much better. Discharged home with return precautions. Patient verbalized understanding instructions and agreement with plan. We will give short course of antibiotics that would potentially cover UTI if they are but also cover possible sinusitis given her symptoms. She did get the first dose of Rocephin today and we will give her 6 more days of cefdinir for this. I will send a copy of the chart to the patient's primary care provider. Diagnostic Imaging Diagonstic Imaging: Xray Plain Films/CT/US/NM/MRI: chest Comments NAME: [facility] REC#: [id number] PT STATUS: REG ER : 1935 PHYSICIAN: BJORN LOW MD ADMIT DATE: 07/24/23/ER Draft Date of Exam:07/24/23 CHEST 1 VIEW, AP/PA ONLY INDICATION: fever, weakness COMPARISON: 07/01/2022 FINDINGS: Single frontal view of the chest demonstrates normal heart size and pulmonary vascularity. The lungs are well aerated and clear. No large pleural effusion or pneumothorax is seen. The visualized osseous structures show no acute abnormalities. Hiatal hernia is noted. IMPRESSION: 1. No acute cardiopulmonary process. Dictated on workstation # [id number] Dict: 07/24/23 0854 Trans: 07/24/23 0855 [id number] Interpreted by: FAVIAN ACUNA MD Electronically signed by: Departure Impression Primary Impression: Upper respiratory infection Qualified Codes: J06.9 - Acute upper respiratory infection, unspecified Additional Impression: Urinary tract infection Qualified Codes: N30.00 - Acute cystitis without hematuria Disposition: 01 HOME, SELF-CARE Condition: Improved Departure-Patient Inst. Decision time for Depature: 10:49 Referrals: THO WARD DO (PCP/Family) Primary Care Physician Patient Instructions: Bacterial Upper Respiratory Infection, Adult (DC), Urinary Tract Infection, Adult ED Add. Discharge Instructions: You may take Tylenol/acetaminophen 1000 mg every 8 hours as needed for fever or pain. You may take ibuprofen 400 mg every 8 hours as needed for fever or pain. You may use Afrin nasal spray or the generic, 12 hour relief, 2 sprays to each nostril twice daily for 3 days only and then stop. Do not use more than 3 days. Take other medications as directed. Follow-up with your DrJuly in a few days for recheck. Drink plenty of fluids. Return for worse pain, fever, vomiting, weakness, breathing problems or other concerns as needed. Scripts Cefdinir (Cefdinir) 300 Mg Capsule 300 MG PO BID, #12 CAP 0 Refills Prov: BJORN LOW MD 07/24/23 Copy Copies To 1: THO WARD TIMOTHY D MD Jul 24, 2023 08:32
[2023-07-24 08:40] LABS: BASOPHILS % (AUTO) 0 % (0-10); EOSINOPHILS % (AUTO) 0 % (0-10); HEMATOCRIT 34 % (35-52); HEMOGLOBIN 11.5 g/dL (11.5-16.0); LYMPHOCYTES % (AUTO) 8 % (12-44); MEAN CORPUSCULAR HEMOGLOBIN 31 pg (25-34); MEAN CORPUSCULAR HGB CONC 34 g/dL (32-36); MEAN CORPUSCULAR VOLUME 93 fL (80-99); MEAN PLATELET VOLUME 9.4 fL (9.0-12.2); MONOCYTES % (AUTO) 9 % (0-12); NEUTROPHILS # (AUTO) 9.9 10^3/uL (1.8-7.8); NEUTROPHILS % (AUTO) 82 % (42-75); PLATELET COUNT 230 10^3/uL (130-400); WHITE BLOOD COUNT 12.1 10^3/uL (4.3-11.0)
[2023-07-24 08:45] LABS: ALBUMIN 3.8 GM/DL (3.2-4.5); POTASSIUM 3.3 MMOL/L (3.6-5.0)
[2023-07-24 08:46] LABS: CALCIUM 8.7 MG/DL (8.5-10.1)
[2023-07-24 08:48] LABS: INR 1.1 (0.8-1.4); PROTHROMBIN TIME PATIENT 14.9 SEC (12.2-14.7); TOTAL PROTEIN 6.4 GM/DL (6.4-8.2)
[2023-07-24 08:49] LABS: BILIRUBIN,TOTAL 0.7 MG/DL (0.1-1.0)
[2023-07-24 08:51] LABS: CREATININE SERUM 0.97 MG/DL (0.60-1.30)
[2023-07-24 08:53] LABS: BACTERIA,URINE MODERATE /HPF; BILIRUBIN,URINE NEGATIVE (NEGATIVE); CLARITY,URINE CLEAR; COLOR,URINE YELLOW; GLUCOSE, URINE (UA) NEGATIVE (NEGATIVE); KETONES,URINE NEGATIVE (NEGATIVE); LEUKOCYTE ESTERASE ,URINE TRACE (NEGATIVE); NITRITE,URINE NEGATIVE (NEGATIVE); PH,URINE 5.5 (5-9); PROTEIN,URINE NEGATIVE (NEGATIVE); SQUAMOUS EPITHELIAL CELL,UR >50 /HPF; WBC,URINE 25-50 /HPF
[2023-07-24 08:54] LABS: AMORPHOUS SEDIMENT,UR FEW AMOR URATES /LPF
--- NOTE | 2023-07-24 08:55 | Diagnostic Imaging Report ---
INDICATION: fever, weakness COMPARISON: 07/01/2022 FINDINGS: Single frontal view of the chest demonstrates normal heart size and pulmonary vascularity. The lungs are well aerated and clear. No large pleural effusion or pneumothorax is seen. The visualized osseous structures show no acute abnormalities. Hiatal hernia is noted. IMPRESSION: 1. No acute cardiopulmonary process. Dictated by: Dictated on workstation # [id number]
[2023-07-24] MEDS ORDERED: cefTRIAXone IV/IM 1,000 MG in NS (IVPB) 50 ML 50 ML IV STA (09:11)
[2023-07-24] MEDS ORDERED: CEFD300C3 PO (10:51)
[2023-07-24 11:26] VITALS: BP 122/69
== END 2023-07-24 11:27 | disposition home or self-care (01) ==
LOC: EDUNIT# 08:16 → ER 08:17
DX: J06.9 Acute upper respiratory infection, unspecified (principal); N39.0 Urinary tract infection, site not specified; R74.02 Elevation of levels of lactic acid dehydrogenase [LDH]
CPT/HCPCS: 36415; 71045; 80053; 81000; 83605; 85025; 85610; 85730; 86141; 87040; 87088; 87636; 96361; 96365